=== PATIENT | female | born 1945 | race Caucasian/White ===

== ENCOUNTER 2020-07-30 08:14 | Emergency (ER) | payer MEDICARE ==
[~2020-07-30] VITALS: Ht 165.1 cm; Wt 81.6 kg
[2020-07-30 08:15] VITALS: BP_SYST 97
[2020-07-30] MEDS ORDERED: NACL 0.9% 1,000 ML IV ONE (08:30)
[2020-07-30] MEDS ORDERED: ONDANSETRON HCL 4 MG/2 ML VIAL IVP ONE (08:30)
[2020-07-30 08:57] LABS: ANION GAP 11 (5-15); CALCIUM 8.9 mg/dL (8.4-11.0); CHLORIDE 99 mmol/L (98-107); CREATININE 0.95 mg/dL (0.55-1.30); GLUCOSE 339 mg/dL (70-99); POTASSIUM 3.8 mmol/L (3.5-5.1); SODIUM SERUM 135 mmol/L (136-145); UREA NITROGEN, BLOOD 26 mg/dL (8-21)
[2020-07-30 09:02] LABS: ALANINE AMINOTRANSFERASE 45 U/L (12-78); ALBUMIN 3.7 g/dL (3.4-4.8); ASPARTATE AMINOTRANSFERASE 22 U/L (10-37); TOTAL BILIRUBIN 0.3 mg/dL (0.0-1.0)
[2020-07-30 10:50] VITALS: BP_SYST 148
== END 2020-07-30 10:51 | disposition home or self-care (01) ==
LOC: SED 08:14
DX: E11.65 Type 2 diabetes mellitus with hyperglycemia (principal)
CPT/HCPCS: 36415; 80053; 96361; 96374; 99283; J2405; J7030